=== PATIENT | female | born 1935 | race Caucasian/White ===

== ENCOUNTER → 2023-09-16 14:53 | Outpatient (REF) | payer OTHER, SELFPAY | LOC: HWRAD 14:53 | PROVIDERS: ATTENDING PHYSICIAN Nurse Practitioner Family | DX: R06.09 Other forms of dyspnea (principal); M54.9 Dorsalgia, unspecified | CPT/HCPCS: 71046; 72072 ==

== ENCOUNTER → 2024-05-11 09:44 | Outpatient (REF) | payer OTHER, SELFPAY | LOC: RST 09:44 | PROVIDERS: ATTENDING PHYSICIAN Nurse Practitioner Family | DX: R13.10 Dysphagia, unspecified (principal) | CPT/HCPCS: 74230; 92611 ==

== ENCOUNTER → 2024-07-21 15:21 | Outpatient (REF) | payer OTHER, SELFPAY | LOC: HWRAD 15:21 | PROVIDERS: ATTENDING PHYSICIAN Nurse Practitioner Adult Health; FAMILY PHYSICIAN Nurse Practitioner Family | DX: M54.12 Radiculopathy, cervical region (principal); M54.50 Low back pain, unspecified; G89.4 Chronic pain syndrome | CPT/HCPCS: 72050; 72072; 72110 ==